=== PATIENT | female | born 1980 | race Caucasian/White ===

== ENCOUNTER 2016-10-30 22:27 | Emergency (ER) | payer OTHER ==
[~2016-10-30 22:27] MED LIST: NORCO1 TA1 PO; PERCOCET1 TA1 PO; ZOFRAN8 MG PO
--- NOTE | 2016-10-30 23:50 | ED NURSING NOTES ---
Clinical Report - Nurses [facility] [address] [place] [address] 10/30/2016 22:27 [id number] Triage time 22:53 Oct 30 2016. Acuity: LEVEL 4. Chief Complaint: (tenderness). --22:56 Rich Baker R.N. 22:52 10/30/16. BP: 117/75. HR: 110. RR: 18. O2 saturation: 100%. Temp: 99 F. Pain level now 02/05. --22:56 Rich Baker R.N. Weight: 81.6 kg stated. Height/Length: 62 inches Per Patient. BMI: 32.9. --22:56 Rich Baker R.N. Medications None. --22:53 Rich Baker R.N. Allergies None. --22:53 Rich Baker R.N. History Arrived by private vehicle. ( Pt states swelling to L leg for days.). Onset. (3 days). SOCIAL HX: Heavy tobacco smoker. Occasional alcohol use. History of occasional drug use: marijuana. --22:56 Rich Baker R.N. PROBLEMS: Sick Contact. Burn Check. Burn. Hives. Sprain. Squamous cell carcinoma of skin of face. Abdominal Pain. Cancer. Abnormal Test. UTI - Urinary Tract Infection. Gastroenteritis. Vomiting. Abd pain, nausea, diahrea. Contusion. Hidradenitis Suppurativa. LNMP - Last Normal Menstrual Period. Fall. Fractured Metatarsal. Tetanus Status. Cellulitis. MRSA Infection. Immunizations. Anxiety Reaction. Abscess. --22:55 Rich Baker R.N. Interventions ID band on patient. To treatment room. --22:56 Rich Baker R.N. PHYSICAL ASSESSMENT GENERAL / NEURO / PSYCH: Alert. Oriented X 4. Appears anxious. RESPIRATORY: Respirations not labored. Breath sounds within normal limits. CVS: Normal heart rate and rhythm. Capillary refill less than 2 seconds. GI / : Abdomen soft and nontender. Bowel sounds within normal limits. No vaginal bleeding. No vaginal discharge. No genital lesions noted. --22:56 Rich Baker R.N. NURSING PROGRESS NOTES Pulse oximeter placed on patient; cardiac tech- Lead I. Patient gowned. Two patient identifiers checked. Call light placed in reach of patient. Side rails up x 1. --22:57 Rich Baker R.N. 00:03 10/31/2016 Bactrim DS (Sulfamethoxazole-TMP DS) PO 1 tab given. Allergies verified and confirmed 5 rights. --00:08 Rich Baker R.N. DISPOSITION / DISCHARGE Departure time: 00:Oct 31 2016. No learning barriers present. Discharge instructions provided and reviewed with the patient. Reviewed warnings. Reviewed medication(s). Treatments reviewed. Reviewed referrals. Patient verbalized understanding. Written instructions provided in [place]i. The patient was discharged by the physician. She was discharged home and accompanied by family. She left the Emergency Department ambulatory and via private vehicle. Family member driving. --00:09 Rich Baker R.N. 00:08 10/31/16. BP: 122/89. HR: 102. RR: 18. O2 saturation: 100%. Temp: 98.9 F. Pain level now 10/08. --00:09 Rich Baker R.N. Locked/Released at 10/31/2016 2:31 by Demetrius Owens R.N.
--- NOTE | 2016-10-30 23:50 | ED ORDER SUMMARY ---
..... Patient: WILL SINGH OrderSheet [facility] VisitID: [id number] [address] [place] [address] 35y, F Registration Date/Time: 10/30/2016 ORDER SHEET Weight: 81.6 kg (stated) Allergies: None GENERAL ORDERS: MEDICATION ORDERS: Bactrim DS PO (Tablet 800-160 mg) 1 tab (NOW) (23:48 10/30/2016 Buddy RINCON) (0:08 Main R.N.) IV FLUIDS: ORDER SHEET NOTES: [Electronically signed by Demetrius Owens R.N. (02:31 10/31/2016)] [Electronically signed by Belem Frederick MD (18:26 10/31/2016)] [Electronically locked/signed by Demetrius Owens R.N. (02:10/31/2016)]
--- NOTE | 2016-10-30 23:50 | ED NURSING NOTES ---
Clinical Report - Nurses [facility] [address] [place] [address] 10/30/2016 22:27 [id number] TRI[facility] Triage time 22:53 Oct 30 2016. Acuity: LEVEL 4. Chief Complaint: (tenderness). --22:56 Rich Baker R.N. 22:52 10/30/16. BP: 117/75. HR: 110. RR: 18. O2 saturation: 100%. Temp: 99 F. Pain level now 02/05. --22:56 Rich Baker R.N. Weight: 81.6 kg stated. Height/Length: 62 inches Per Patient. BMI: 32.9. --22:56 Rich Baker R.N. Medications None. --22:53 Rich Baker R.N. Allergies None. --22:53 Rich Baker R.N. History Arrived by private vehicle. ( Pt states swelling to L leg for days.). Onset. (3 days). SOCIAL HX: Heavy tobacco smoker. Occasional alcohol use. History of occasional drug use: marijuana. --22:56 Rich Baker R.N. PROBLEMS: Sick Contact. Burn Check. Burn. Hives. Sprain. Squamous cell carcinoma of skin of face. Abdominal Pain. Cancer. Abnormal Test. UTI - Urinary Tract Infection. Gastroenteritis. Vomiting. Abd pain, nausea, diahrea. Contusion. Hidradenitis Suppurativa. LNMP - Last Normal Menstrual Period. Fall. Fractured Metatarsal. Tetanus Status. Cellulitis. MRSA Infection. Immunizations. Anxiety Reaction. Abscess. --22:55 Rich Baker R.N. Interventions ID band on patient. To treatment room. --22:56 Rich Baker R.N. PHYSICAL ASSESSMENT GENERAL / NEURO / PSYCH: Alert. Oriented X 4. Appears anxious. RESPIRATORY: Respirations not labored. Breath sounds within normal limits. CVS: Normal heart rate and rhythm. Capillary refill less than 2 seconds. GI / : Abdomen soft and nontender. Bowel sounds within normal limits. No vaginal bleeding. No vaginal discharge. No genital lesions noted. --22:56 Rich Baker R.N. NURSING PROGRESS NOTES Pulse oximeter placed on patient; patient monitor- Lead I. Patient gowned. Two patient identifiers checked. Call light placed in reach of patient. Side rails up x 1. --22:57 Rich Baker R.N. 00:03 10/31/2016 Bactrim DS (Sulfamethoxazole-TMP DS) PO 1 tab given. Allergies verified and confirmed 5 rights. --00:08 Rich Baker R.N. DISPOSITION / DISCHARGE Departure time: 00:Oct 31 2016. No learning barriers present. Discharge instructions provided and reviewed with the patient. Reviewed warnings. Reviewed medication(s). Treatments reviewed. Reviewed referrals. Patient verbalized understanding. Written instructions provided in Dutch. The patient was discharged by the physician. She was discharged home and accompanied by family. She left the Emergency Department ambulatory and via private vehicle. Family member driving. --00:09 Rich Baker R.N. 00:08 10/31/16. BP: 122/89. HR: 102. RR: 18. O2 saturation: 100%. Temp: 98.9 F. Pain level now 10/08. --00:09 Rich Baker R.N. Locked/Released at 10/31/2016 2:31 by Demetrius Owens R.N.
--- NOTE | 2016-10-30 23:50 | ED ORDER SUMMARY ---
..... Patient: WILL SINGH OrderSheet [facility] VisitID: [id number] [address] [place] [address] 35y, F Registration Date/Time: 10/30/2016 ORDER SHEET Weight: 81.6 kg (stated) Allergies: None GENERAL ORDERS: MEDICATION ORDERS: Bactrim DS PO (Tablet 800-160 mg) 1 tab (NOW) (23:48 10/30/2016 Buddy RINCON) (0:08 Main R.N.) IV FLUIDS: ORDER SHEET NOTES: [Electronically signed by Demetrius Owens R.N. (02:31 10/31/2016)] [Electronically signed by Belem Frederick MD (18:26 10/31/2016)] [Electronically locked/signed by Demetrius Owens R.N. (02:10/31/2016)]
--- NOTE | 2016-10-30 23:50 | ED CLINICAL REPORT ---
Clinical Report - Physicians/Mid Levels [facility] [address] [place] [address] 10/30/2016 22:27 Patient: WILL SINGH Time Seen: 23:29. Arrived- By private vehicle. Historian- patient. HISTORY OF PRESENT ILLNESS Chief Complaint: LOWER EXTREMITY PAIN and SWELLING. Not worsened by anything and relieved by anything. Severity is described as being moderate. The quality is noted to be "pain". This started several days ago and is still present and now worse. Location: L inguinal area. The patient has had redness and swelling. No difficulty walking. No bladder dysfunction, bowel dysfunction, sensory loss or motor loss. ( Pt states she noticed a red "bump" under her panty line, and now it is bigger.). Patient denies an injury. Similar symptoms previously: None. Recent medical care: Not recently seen/assessed. REVIEW OF SYSTEMS No cough, chest pain, difficulty breathing, fever or enlarged lymph nodes. No neck pain, back pain, headache, blurred vision or sore throat. No abdominal pain, vomiting, diarrhea, black stools or difficulty with urination. No bloody stools. The patient has had skin rash. All systems otherwise negative, except as recorded above. PAST HISTORY Problems: Hives. Squamous cell carcinoma of skin of face. Cancer. Hidradenitis Suppurativa. LNMP - Last Normal Menstrual Period. Fractured Metatarsal. Tetanus Status. MRSA Infection. Immunizations. Anxiety Reaction. Additional Surgeries: . Hysterectomy. Knee Surgery. Laparoscopy. Left foot surgery . Salpingectomy. Tubal Ligation. Medications: None. Allergies: None. SOCIAL HISTORY Smoker- current status unknown. Alcohol use. History of drug use: marijuana. ADDITIONAL NOTES The nursing notes have been reviewed. PHYSICAL EXAM Vital Signs: 10/30/2016 22:52 BP: 117/75. HR: 110. RR: 18. O2 saturation: 100%. Temp: 99 F. Have been reviewed. Appearance: Alert. Oriented X3. No acute distress. Eyes: Pupils equal, round and reactive to light. Eyes normal inspection. ENT: Nose normal. Neck: Normal inspection. CVS: Normal heart rate and rhythm. Heart sounds normal. Respiratory: No respiratory distress. Breath sounds normal. Abdomen: Soft. Back: Normal inspection. ROM normal. Skin: Skin intact. Skin warm and dry. (Pt has a 3 cm, soft area of erythema and mild swelling over her mid-left inguinal area. No mass is noted, and minimal induration. No drainage.). Extremities: Lower extremities exhibit normal ROM. No lower extremity edema. Extremities otherwise negative. Gait: Normal gait. Neuro: Oriented X 3. No motor deficit. No sensory deficit. LABS, X-RAYS, AND EKG Pulse Oximetry: 10/30/2016 22:52 O2 saturation: 100%. (FIO2 - room air). Interpretation: normal. PROGRESS AND PROCEDURES Course of Care: D/w pt that there is no indication for I&D at this time. She will be started on abx, and has been given the first dose in the ED. Patient counseled in person regarding the patient's stable condition, diagnosis and need for follow-up. Concerns were addressed. Old medical records reviewed. Disposition: Discharged. Condition: stable. CLINICAL IMPRESSION Cellulitis of the left thigh. INSTRUCTIONS Warnings: GENERAL WARNINGS: Return or contact your physician immediately if your condition worsens or changes unexpectedly, if not improving as expected, or if other problems arise. Prescription Medications: Trimethoprim-Sulfamethoxazole DS: take 1 tablet orally every 12 hours for 7 days. No refill. Follow-up: Follow up with your doctor if not improving in three days. Understanding of the discharge instructions verbalized by patient. (Electronically signed by Belem Frederick MD 10/31/2016 18:26)
--- NOTE | 2016-10-31 18:26 | ED MAR SUMMARY ---
..... Medication Administration Record [facility] [address] [place] [address] Patient: WILL SINGH Visit ID: [id number] 35y, F Weight: 81.6 kg Height/Length: 62 in BMI: 32.9 ALLERGIES: None Given 00:03 10/31/2016 Rich Baker R.N. Medication Administered: BACTRIM DS [PO] (SULFAMETHOXAZOLE-TMP DS), Dose: 1 tab PO. Medication Ordered: Bactrim DS PO (Tablet 800-160 mg) 1 tab (NOW).
--- NOTE | 2016-10-31 18:26 | ED MAR SUMMARY ---
..... Medication Administration Record [facility] [address] [place] [address] Patient: WILL SINGH Visit ID: [id number] 35y, F Weight: 81.6 kg Height/Length: 62 in BMI: 32.9 ALLERGIES: None Given 00:03 10/31/2016 Rich Baker R.N. Medication Administered: BACTRIM DS [PO] (SULFAMETHOXAZOLE-TMP DS), Dose: 1 tab PO. Medication Ordered: Bactrim DS PO (Tablet 800-160 mg) 1 tab (NOW).
--- NOTE | 2016-10-31 18:26 | ED MED RECONCILIATION SUMMARY ---
Patient: WILL SINGH Medication Reconciliation Report [facility] VisitID: [id number] [address] [place] [address] 35y, F Registration Date/Time: 10/30/2016 Weight: 81.6 kg Height/Length: 62 in. BMI: 32.9 ALLERGIES: None The patient's Home Medications are listed below: NONE. The source(s) of the original Home Medication information: Not obtained. The following Medications were given to the patient in the Emergency Department: Bactrim DS [PO] PO 1 tab, administered: 10/31/2016 12:03:00 AM The following Medications were prescribed to the patient: Trimethoprim-Sulfamethoxazole DS: take 1 tablet orally every 12 hours for 7 days. No refill. -- Belem Frederick MD
--- NOTE | 2016-10-31 18:26 | ED DISCHARGE INSTRUCTIONS ---
Patient: WILL SINGH General Instructions [facility] VisitID: [id number] [place] [address] 35y, F Registration Date/Time: 10/30/2016 Cellulitis of the left thigh. INSTRUCTIONS Warnings: GENERAL WARNINGS: Return or contact your physician immediately if your condition worsens or changes unexpectedly, if not improving as expected, or if other problems arise. Prescription Medications: Trimethoprim-Sulfamethoxazole DS: take 1 tablet orally every 12 hours for 7 days. No refill. Follow-up: Follow up with your doctor if not improving in three days. Understanding of the discharge instructions verbalized by patient. ADDITIONAL INFORMATION Cellulitis You have an infection of the skin known as cellulitis. This usually starts with a scrape, cut, insect bite, blister or other opening in the skin which becomes infected. This is a serious condition. It must be watched closely to be sure the infection is not spreading. With antibiotic treatment, the size of the red area will gradually shrink in size until the skin returns to normal. This will take 7-10 days. The red area should never increase in size once the antibiotic medicine has been started. Occasionally, an infection will be resistant to one antibiotic and another one will have to be used. Home Care: 1) Limit the use of the affected part, since excess movement can cause the infection to spread. 2) If the infection is on your leg, walk as little as possible during the first few days of the treatment. Keep your leg elevated while sitting. This will reduce swelling. 3) Take all of the antibiotic medicine exactly as directed until it is gone. Be careful not to miss any doses, especially during the first seven days. Follow Up with your doctor or this facility as directed. Check the infected area daily for the warning signs listed below. Get Prompt Medical Attention if any of the following occur: -- Spreading area of redness -- Increasing swelling or pain -- Appearance of pus or drainage -- Fever over 100.4 F (38.0 C) oral, or over 101.4 F (38.6 C) rectal, after two days on antibiotics You have been given the following additional information: Cellulitis (Electronically signed by Belem Frederick MD 10/31/2016 18:26)
--- NOTE | 2016-10-31 18:26 | ED MED RECONCILIATION SUMMARY ---
Patient: WILL SINGH Medication Reconciliation Report [facility] VisitID: [id number] [address] [place] [address] 35y, F Registration Date/Time: 10/30/2016 Weight: 81.6 kg Height/Length: 62 in. BMI: 32.9 ALLERGIES: None The patient's Home Medications are listed below: NONE. The source(s) of the original Home Medication information: Not obtained. The following Medications were given to the patient in the Emergency Department: Bactrim DS [PO] PO 1 tab, administered: 10/31/2016 12:03:00 AM The following Medications were prescribed to the patient: Trimethoprim-Sulfamethoxazole DS: take 1 tablet orally every 12 hours for 7 days. No refill. -- Belem Frederick MD
--- NOTE | 2016-10-31 18:26 | ED DISCHARGE INSTRUCTIONS ---
Patient: WILL SINGH General Instructions [facility] VisitID: [id number] [place] [address] 35y, F Registration Date/Time: 10/30/2016 Cellulitis of the left thigh. INSTRUCTIONS Warnings: GENERAL WARNINGS: Return or contact your physician immediately if your condition worsens or changes unexpectedly, if not improving as expected, or if other problems arise. Prescription Medications: Trimethoprim-Sulfamethoxazole DS: take 1 tablet orally every 12 hours for 7 days. No refill. Follow-up: Follow up with your doctor if not improving in three days. Understanding of the discharge instructions verbalized by patient. ADDITIONAL INFORMATION Cellulitis You have an infection of the skin known as cellulitis. This usually starts with a scrape, cut, insect bite, blister or other opening in the skin which becomes infected. This is a serious condition. It must be watched closely to be sure the infection is not spreading. With antibiotic treatment, the size of the red area will gradually shrink in size until the skin returns to normal. This will take 7-10 days. The red area should never increase in size once the antibiotic medicine has been started. Occasionally, an infection will be resistant to one antibiotic and another one will have to be used. Home Care: 1) Limit the use of the affected part, since excess movement can cause the infection to spread. 2) If the infection is on your leg, walk as little as possible during the first few days of the treatment. Keep your leg elevated while sitting. This will reduce swelling. 3) Take all of the antibiotic medicine exactly as directed until it is gone. Be careful not to miss any doses, especially during the first seven days. Follow Up with your doctor or this facility as directed. Check the infected area daily for the warning signs listed below. Get Prompt Medical Attention if any of the following occur: -- Spreading area of redness -- Increasing swelling or pain -- Appearance of pus or drainage -- Fever over 100.4 F (38.0 C) oral, or over 101.4 F (38.6 C) rectal, after two days on antibiotics You have been given the following additional information: Cellulitis (Electronically signed by Belem Frederick MD 10/31/2016 18:26)
== END 2016-10-31 00:06 | disposition home or self-care (01) ==
LOC: ED SRH 22:27
DX: L03.116 Cellulitis of left lower limb (principal)

== ENCOUNTER 2016-12-01 15:47 | Emergency (ER) | payer OTHER ==
--- NOTE | 2016-12-01 16:33 | ED CLINICAL REPORT ---
Clinical Report - Physicians/Mid Levels [facility] [address] [place] [address] 12/01/2016 15:47 Patient: WILL SINGH Time Seen: 15:55; upon arrival, initial patient contact, initial documentation, patient care assumed. Arrived- By private vehicle. Historian- patient. HISTORY OF PRESENT ILLNESS Chief Complaint: SKIN RASH and ITCHING. The patient has had a skin rash and itching but not had trouble swallowing. No difficulty breathing or dizziness. This started just prior to arrival about 3 hours SHEEP SHEARER and is still present and worsening. No cause has been identified. No treatment prior to arrival. (states rash came on suddenly, started on face, then on arms and now on trunk). Similar symptoms previously: Once, worse. Recent medical care: Not recently seen/assessed. REVIEW OF SYSTEMS No chest pain. All systems otherwise negative, except as recorded above. PAST HISTORY See nurses notes. PROBLEMS: Squamous cell carcinoma of skin of face. Cancer. UTI - Urinary Tract Infection. Gastroenteritis. Abd pain, nausea, diahrea. Hidradenitis Suppurativa. Fractured Metatarsal. Cellulitis. MRSA Infection. --15:58 Damari Zuluaga R.N. ADDITIONAL SURGERIES: . Hysterectomy. Knee Surgery. Laparoscopy. Left foot surgery . Salpingectomy. Tubal Ligation. --15:58 Damari Zuluaga R.N. SOCIAL HISTORY Light tobacco smoker. Occasional alcohol use. No drug use. No recent travel. Is a local resident. FAMILY HISTORY Negative. ADDITIONAL NOTES The nursing notes have been reviewed with agreement regarding the chief complaint, HPI, ROS, PMH and patient medications and allergies. PHYSICAL EXAM Vital Signs: 12/01/2016 15:50 BP: 123/82. HR: 102. RR: 22. O2 saturation: 98%. Temp: 98.6 F. Pain level now: 5/10. Have been reviewed as abnormal and appear to be correct. Blood pressure normal. Tachycardic. Respiratory rate normal. Temperature normal. Oxygen saturation normal. Appearance: Alert. Oriented X3. No acute distress. Head and Neck: Normal external inspection. Eyes: Pupils equal, round and reactive to light. ENT: Ears normal. Nose normal. Pharynx normal. Voice normal. Neck: Neck supple. CVS: Normal heart rate and rhythm. Heart sounds normal. Respiratory: No respiratory distress. Breath sounds normal. Skin: Skin warm and dry. Normal skin turgor. Extremities: Normal external inspection. Extremities nontender. Skin: Moderate urticaria involving the face and chest, right upper extremity and left upper extremity. Normal skin color. Neuro: Oriented X 3. No motor deficit. No sensory deficit. PROGRESS AND PROCEDURES Course of Care: 16:30 12/01/16. nurse reporting she gave benadryl po instead of im pt has wandy for #6 er visits, see report for full details. Patient counseled in person regarding the patient's stable condition and diagnosis. Differential Diagnosis: I considered dermatitis, cellulitis, inflammatory etiology, type 1 hypersensitivity, drug eruption, toxic epidermal necrolysis, idiopathic urticaria, erythema multiforme, erythema nodosum, environmental etiology, viral exanthem, measles, rubella, roseola and fifth disease as a possible cause of rash in this patient. This is a partial list of diagnoses considered. Above considerations are based on history and physical exam. Differential diagnosis was discussed with patient. Disposition: Discharged home in good and improved condition (16:33). Condition: good and stable. CLINICAL IMPRESSION Acute hives secondary to allergy. INSTRUCTIONS Warnings: GENERAL WARNINGS: Return or contact your physician immediately if your condition worsens or changes unexpectedly, if not improving as expected, or if other problems arise. Specifically return if problem worsens. Prescription Medications: Blanche 180 mg tablets: take 1 orally daily for 10 days. Dispense ten (10). No refills. Prednisone 20 mg: take 3 orally every day for 10 days. Dispense sufficient quantity. No refills. Pepcid 40 mg RPD: take 1 orally at bedtime for 10 days. Dispense ten (10). No refills. Follow-up: Follow up with your doctor in two days even if well. Call for an appointment. Summary of care provided to patient. Understanding of the discharge instructions verbalized by patient. (Electronically signed by Norah Connell A.R.N.P. 12/01/2016 17:53)
--- NOTE | 2016-12-01 16:33 | ED NURSING NOTES ---
Clinical Report - Nurses [facility] [address] [place] [address] 12/01/2016 15:47 Patient: WILL SINGH TRIAGE Triage time 1550. Acuity: LEVEL 4. Chief Complaint: SKIN RASH and ITCHING and DIFFICULTY BREATHING 15:50. --16:00 Damari Zuluaga R.N. 15:50 12/01/16. BP: 123/82. HR: 102. RR: 22. O2 saturation: 98% on room air. Temp: 98.6 F. Pain level now: 01/05. --16:00 Damari Zuluaga R.N. Weight: 77.1 kg stated. Height/Length: 64 inches Per Patient. BMI: 29.2. --15:56 Damari Zuluaga R.N. Medications Bactrim on last day of 10 day course for bhronchitis . --15:59 Damari Zuluaga R.N. albuterol 2 puffs every 4 tiems a day prn . --16:00 Damari Zuluaga R.N. Benzonatate Oral 100 mg, 3x a day. --16:00 Damari Zuluaga R.N. Allergies None. --15:59 Damari Zuluaga R.N. History Arrived by private vehicle. Historian: patient. Accompanied by (drove self). No primary care physician. Onset. (1300). She has had a skin rash, itching, swelling and difficulty breathing. PAST MEDICAL HX: The patient has had a hysterectomy. SOCIAL HX: Light tobacco smoker (cigarette)- less than 1/2 a pack per day. Occasional alcohol use. No drug use. --16:00 Damari Zuluaga R.N. PROBLEMS: Squamous cell carcinoma of skin of face. Cancer. UTI - Urinary Tract Infection. Gastroenteritis. Abd pain, nausea, diahrea. Hidradenitis Suppurativa. Fractured Metatarsal. Cellulitis. MRSA Infection. --15:58 Damari Zuluaga R.N. ADDITIONAL SURGERIES: . Hysterectomy. Knee Surgery. Laparoscopy. Left foot surgery . Salpingectomy. Tubal Ligation. --15:58 Damari Zuluaga R.N. Interventions ID band on patient. To treatment room. --16:00 Damari Zuluaga R.N. PHYSICAL ASSESSMENT 16:02 12/01/16. Ambulatory to room. Patient gowned. GENERAL / NEURO / PSYCH: Alert. The patient does not appear to be in acute distress. Appears anxious. Oriented X 4. ( c/o skin itching and burning). HEENT: Facial swelling present. RESPIRATORY: Mild respiratory distress. Cough. ( states she feels like her throat is tight,). CVS: Capillary refill less than 2 seconds. GI / : Abdomen nontender. SKIN: Skin rash present. Urticaria present. Swelling present. Increased warmth present. --16:02 Damari Zuluaga R.N. NURSING PROGRESS NOTES 15:50. Monitoring of patient in place. Patient gowned. Head of bed elevated. Reassurance given. Patient identifiers checked. Call light placed in reach. Side rails up. Bed placed in lowest position. Patient ready for evaluation- chart flagged. --16:01 Damari Zuluaga R.N. 16:24 12/01/2016 Decadron (Dexamethasone Sodium Phosphate) IM 8 mg given. Given in the left ventral gluteus. Allergies verified and confirmed 5 rights. --16:30 Damari Zuluaga R.N. 16:25 12/01/2016 Pepcid (Famotidine) PO Capsules 40 mg given. Allergies verified and confirmed 5 rights. --16:30 Damari Zuluaga R.N. 16:25 12/01/2016 Benadryl (DiphenhydrAMINE HCl) PO Capsules 50 mg given. Sedative warning given to the patient. --16:31 Damari Zuluaga R.N. 16:38 Skin less red, pt states not as itchy or burning. DC'd home with rx. --17:02 Damari Zuluaga R.N. DISPOSITION / DISCHARGE 16:48. Condition at departure: improved and stable. No learning barriers present. Discharge instructions provided and reviewed with the patient. Reviewed medication(s) (allegran, rednisone, pepcid). Patient verbalized understanding. Written instructions provided in Finnish. The patient was discharged home. She left the Emergency Department ambulatory and via private vehicle. --17:01 Damari Zuluaga R.N. 16:48 12/01/16. BP: 112/74. HR: 88. RR: 20. O2 saturation: 100%. Temp: deferred. Pain level now: 11/05. --17:01 Damari Zuluaga R.N. Locked/Released at 12/01/2016 17:02 by Damari Zuluaga R.N.
--- NOTE | 2016-12-01 16:33 | ED ORDER SUMMARY ---
..... Patient: WILL SINGH OrderSheet [facility] VisitID: [id number] [place] [address] 35y, F Registration Date/Time: 12/01/2016 ORDER SHEET Weight: 77.1 kg (stated) Allergies: None GENERAL ORDERS: MEDICATION ORDERS: Benadryl IM 50 mg (NOW) (16:14 12/01/2016 HBivens A.R.N.P.) (Ack 16:19 DDean R.N.) (Cancelled: Other16:30 DDean R.N.) Pepcid PO 40 mg (NOW) (16:14 12/01/2016 HBivens A.R.N.P.) (Ack 16:19 DDean R.N.) (16:30 DDean R.N.) Decadron IM 8 mg (NOW) (16:15 12/01/2016 HBivens A.R.N.P.) (Ack 16:19 DDean R.N.) (16:30 DDean R.N.) Benadryl PO 50 mg (NOW) (16:31 12/01/2016 DDean R.N. verbal order read back to HBivens A.R.N.P.) (16:31 DDean R.N.) IV FLUIDS: ORDER SHEET NOTES: [Electronically signed by Damari Zuluaga R.N. (17:02 12/01/2016)] [Electronically signed by Norah Connell.R.N.P. (17:53 12/01/2016)] [Electronically locked/signed by Damari Zuluaga R.N. (17:02 12/01/2016)]
--- NOTE | 2016-12-01 16:33 | ED ORDER SUMMARY ---
..... Patient: WILL SINGH OrderSheet [facility] VisitID: [id number] [place] [address] 35y, F Registration Date/Time: 12/01/2016 ORDER SHEET Weight: 77.1 kg (stated) Allergies: None GENERAL ORDERS: MEDICATION ORDERS: Benadryl IM 50 mg (NOW) (16:14 12/01/2016 HBivens A.R.N.P.) (Ack 16:19 DDean R.N.) (Cancelled: Other16:30 DDean R.N.) Pepcid PO 40 mg (NOW) (16:14 12/01/2016 HBivens A.R.N.P.) (Ack 16:19 DDean R.N.) (16:30 DDean R.N.) Decadron IM 8 mg (NOW) (16:15 12/01/2016 HBivens A.R.N.P.) (Ack 16:19 DDean R.N.) (16:30 DDean R.N.) Benadryl PO 50 mg (NOW) (16:31 12/01/2016 DDean R.N. verbal order read back to HBivens A.R.N.P.) (16:31 DDean R.N.) IV FLUIDS: ORDER SHEET NOTES: [Electronically signed by Damari Zuluaga R.N. (17:02 12/01/2016)] [Electronically signed by Norah Connell.R.N.P. (17:53 12/01/2016)] [Electronically locked/signed by Damari Zuluaga R.N. (17:02 12/01/2016)]
--- NOTE | 2016-12-01 17:53 | ED MED RECONCILIATION SUMMARY ---
Patient: WILL SINGH Medication Reconciliation Report [facility] VisitID: [id number] [place] [address] 35y, F Registration Date/Time: 12/01/2016 Weight: 77.1 kg Height/Length: 64 in. BMI: 29.2 ALLERGIES: None The patient's Home Medications are listed below: THE FOLLOWING MEDICATIONS NEED TO BE RECONCILED: albuterol 2 puffs every 4 tiems a day prn Bactrim on last day of 10 day course for bhronchitis Benzonatate Oral 100 mg, 3x a day The source(s) of the original Home Medication information: Not obtained. The following Medications were given to the patient in the Emergency Department: Pepcid [PO] PO 40 mg, administered: 12/01/2016 4:25:00 PM Decadron [IM] IM 8 mg, administered: 12/01/2016 4:24:00 PM Benadryl [PO] PO 50 mg, administered: 12/01/2016 4:25:00 PM The following Medications were prescribed to the patient: Blanche 180 mg tablets: take 1 orally daily for 10 days. Dispense ten (10). No refills. -- Norah Connell A.RAleN.P. Prednisone 20 mg: take 3 orally every day for 10 days. Dispense sufficient quantity. No refills. -- Norah Connell A.R.N.P. Pepcid 40 mg RPD: take 1 orally at bedtime for 10 days. Dispense ten (10). No refills. -- Norah Connell A.R.N.P.
--- NOTE | 2016-12-01 17:53 | ED MAR SUMMARY ---
..... Medication Administration Record [facility] [address] [place] [address] Patient: WILL SINGH Visit ID: [id number] 35y, F Weight: 77.1 kg Height/Length: 64 in BMI: 29.2 ALLERGIES: None Given 16:12/01/2016 Damari Zuluaga RAleN. Medication Administered: DECADRON [IM] (DEXAMETHASONE SODIUM PHOSPHATE), Dose: 8 mg IM. Medication Ordered: Decadron IM 8 mg (NOW). Given 16:12/01/2016 Damari Zuluaga, R.N. Medication Administered: BENADRYL [PO] (DIPHENHYDRAMINE HCL), Dose: 50 mg Capsules PO. Medication Ordered: Benadryl PO 50 mg (NOW). Given 16:12/01/2016 Damari Zuluaga, R.N. Medication Administered: PEPCID [PO] (FAMOTIDINE), Dose: 40 mg Capsules PO. Medication Ordered: Pepcid PO 40 mg (NOW).
--- NOTE | 2016-12-01 17:53 | ED DISCHARGE INSTRUCTIONS ---
Patient: WILL SINGH General Instructions [facility] VisitID: [id number] [place] [address] 35y, F Registration Date/Time: 12/01/2016 Acute hives secondary to allergy. INSTRUCTIONS Warnings: GENERAL WARNINGS: Return or contact your physician immediately if your condition worsens or changes unexpectedly, if not improving as expected, or if other problems arise. Specifically return if problem worsens. Prescription Medications: Blanche 180 mg tablets: take 1 orally daily for 10 days. Dispense ten (10). No refills. Prednisone 20 mg: take 3 orally every day for 10 days. Dispense sufficient quantity. No refills. Pepcid 40 mg RPD: take 1 orally at bedtime for 10 days. Dispense ten (10). No refills. Follow-up: Follow up with your doctor in two days even if well. Call for an appointment. Summary of care provided to patient. Understanding of the discharge instructions verbalized by patient. ADDITIONAL INFORMATION Hives Hives is an itchy red rash that can appear suddenly and move about your body. It goes away in one place and comes back in another. This is usually caused by something that you are allergic to such as: EATING: fruit, shellfish, chocolate, nuts, tomatoes or medicine BREATHING: pollens, animal hair/fur or mold spores Exposure to cold air, sun rays or exercise can sometimes cause an attack. Many times we cannot find a cause. Medicines can be used to reduce itching and swelling. The rash will usually fade over several days, but can sometimes last up to two weeks. Home Care: 1) Do not wear tight clothing and do not take hot baths/showers since heat can make the itching worse. 2) An ice pack (ice cubes in a plastic bag, wrapped in a towel) will reduce local areas of redness and itching. Lanacaine cream or Solarcaine spray (or other product containing "benzocaine") will reduce itching. 3) Oral Benadryl (diphenhydramine) is an antihistamine available at drug and grocery stores. Unless a prescription antihistamine was given, Benadryl may be used to reduce itching if large areas of the skin are involved. Use lower doses during the daytime and higher doses at bedtime since the drug may make you sleepy. [NOTE: Do not use Benadryl if you have glaucoma or if you are a man with trouble urinating due to an enlarged prostate.] Claritin (loratadine) is an antihistamine that causes less drowsiness and is a good alternative for daytime use. 4) If you know what you are sensitive to, avoid this substance. Future reactions could be worse than this one. Follow Up with your doctor as directed by our staff, if symptoms do not begin to improve in two days. If you have had a severe reaction, or have had several episodes of hives, then ask your doctor about allergy testing to find out what you are allergic to. Get Prompt Medical Attention if any of the following occur: -- Trouble breathing or swallowing -- New or increased swelling in the face, lips, tongue or throat -- Dizziness, weakness or fainting Allergic Reaction,Generalized [Other] You are having an allergic reaction. This may cause an itchy rash, dizziness, fainting, trouble breathing or swallowing, and swelling of the face or other parts of the body. This can be caused by exposure to something in your surroundings that you have become sensitive to. This could be due to medicine or food. This could also be due to something you put on your skin or in your hair or something in the air. Often it is not possible to find out exactly what has caused your reaction. The goal of today's treatment is to relieve symptoms. The rash will usually fade over several days, but can sometimes last up to two weeks. Home Care: 1) If you know what you are allergic to, avoid it because future reactions could be worse than this one. 2) Avoid tight clothing and anything that heats up your skin (hot showers/baths, direct sunlight) since heat will make itching worse. 3) An ice pack will relieve local areas of intense itching and redness. Lanacaine cream or Solarcaine spray (or other product containing "benzocaine", available without a prescription) will reduce the itching. 4) Oral Benadryl (diphenhydramine) is an antihistamine available at drug and grocery stores. Unless a prescription antihistamine was given, Benadryl may be used to reduce itching if large areas of the skin are involved. Use lower doses during the daytime and higher doses at bedtime since the drug may make you sleepy. [NOTE: Do not use Benadryl if you have glaucoma or if you are a man with trouble urinating due to an enlarged prostate.] Claritin (loratidine) is an antihistamine that causes less drowsiness and is a good alternative for daytime use. Follow Up Follow Up with your doctor or this facility in two days if your symptoms do not continue to improve. If you had a severe reaction today, or if you have had several mild-moderate allergic reactions in the past, ask your doctor about allergy testing to find out what you are allergic to. If your reaction included dizziness, fainting or trouble breathing or swallowing, ask your doctor about carrying an Allergy Kit (injectable epinephrine) for home use. Get Prompt Medical Attention if any of the following occur: -- Trouble breathing or swallowing -- New or worse swelling in the face, eyelids, lips, mouth, tongue or throat -- Dizziness, weakness or fainting Fexofenadine Hydrochloride Oral tablet What is this medicine? FEXOFENADINE (fex oh FEN a connor) is an antihistamine. This medicine is used to treat or prevent symptoms of allergies. It is also used to help reduce itchy skin rash and hives. How should I use this medicine? Take this medicine by mouth with a full glass of water. Follow the directions on the prescription label. You may take this medicine with food or on an empty stomach. Take your medicine at regular intervals. Do not take it more often than directed. You may need to take this medicine for several days before your symptoms improve. Talk to your sand technologist regarding the use of this medicine in children. While this drug may be prescribed for children as young as 6 years old for selected conditions, precautions do apply. What side effects may I notice from receiving this medicine? Side effects that you should report to your doctor or health vehicle care specialist as soon as possible: allergic reactions like skin rash, itching or hives, swelling of the face, lips, or tongue breathing problems chest pain fast heartbeat infection or fever Side effects that usually do not require medical attention (report to your doctor or health vehicle care specialist if they continue or are bothersome): cough drowsiness dry or irritated nose, mouth, or throat headache menstrual changes pain stomach upset, nausea What may interact with this medicine? antacids erythromycin grapefruit, apple, or orange juice ketoconazole magnesium-containing products What if I miss a dose? If you miss a dose, take it as soon as you can. If it is almost time for your next dose, take only that dose. Do not take double or extra doses. Where should I keep my medicine? Keep out of the reach of children. Store at room temperature between 20 and 25 degrees C (68 and 77degrees F). Protect from moisture. Throw away any unused medicine after the expiration date. What should I tell my health care provider before I take this medicine? They need to know if you have any of these conditions: kidney disease an unusual or allergic reaction to fexofenadine, terfenadine, other medicines, foods, dyes, or preservatives or trying to get breast-feeding What should I watch for while using this medicine? Visit your doctor or health vehicle care specialist for regular checks on your health. Tell your doctor or healthcare professional if your symptoms do not start to get better or if they get worse. Prednisone Oral tablet What is this medicine? PREDNISONE (PRED ni sone) is a corticosteroid. It is commonly used to treat inflammation of the skin, joints, lungs, and other organs. Common conditions treated include asthma, allergies, and arthritis. It is also used for other conditions, such as blood disorders and diseases of the adrenal glands. How should I use this medicine? Take this medicine by mouth with a glass of water. Follow the directions on the prescription label. Take this medicine with food. If you are taking this medicine once a day, take it in the morning. Do not take more medicine than you are told to take. Do not suddenly stop taking your medicine because you may develop a severe reaction. Your doctor will tell you how much medicine to take. If your doctor wants you to stop the medicine, the dose may be slowly lowered over time to avoid any side effects. Talk to your sand technologist regarding the use of this medicine in children. Special care may be needed. What side effects may I notice from receiving this medicine? Side effects that you should report to your doctor or health vehicle care specialist as soon as possible: allergic reactions like skin rash, itching or hives, swelling of the face, lips, or tongue changes in emotions or moods changes in vision depressed mood eye pain fever or chills, cough, sore throat, pain or difficulty passing urine increased thirst swelling of ankles, feet Side effects that usually do not require medical attention (report to your doctor or health vehicle care specialist if they continue or are bothersome): confusion, excitement, restlessness headache nausea, vomiting skin problems, acne, thin and shiny skin trouble sleeping weight gain What may interact with this medicine? Do not take this medicine with any of the following medications: metyrapone mifepristone This medicine may also interact with the following medications: aminoglutethimide amphotericin B aspirin and aspirin-like medicines barbiturates certain medicines for diabetes, like glipizide or glyburide cholestyramine cholinesterase inhibitors cyclosporine digoxin diuretics ephedrine female hormones, like estrogens and control pills isoniazid ketoconazole NSAIDS, medicines for pain and inflammation, like ibuprofen or naproxen phenytoin rifampin toxoids vaccines warfarin What if I miss a dose? If you miss a dose, take it as soon as you can. If it is almost time for your next dose, talk to your doctor or health vehicle care specialist. You may need to miss a dose or take an extra dose. Do not take double or extra doses without advice. Where should I keep my medicine? Keep out of the reach of children. Store at room temperature between 15 and 30 degrees C (59 and 86 degrees F). Protect from light. Keep container tightly closed. Throw away any unused medicine after the expiration date. What should I tell my health care provider before I take this medicine? They need to know if you have any of these conditions: Jackpot's syndrome diabetes glaucoma heart disease high blood pressure infection (especially a virus infection such as chickenpox, cold sores, or herpes) kidney disease liver disease mental illness myasthenia gravis osteoporosis seizures stomach or intestine problems thyroid disease an unusual or allergic reaction to lactose, prednisone, other medicines, foods, dyes, or preservatives or trying to get breast-feeding What should I watch for while using this medicine? Visit your doctor or health vehicle care specialist for regular checks on your progress. If you are taking this medicine over a prolonged period, carry an identification card with your name and address, the type and dose of your medicine, and your doctor's name and address. This medicine may increase your risk of getting an infection. Tell your doctor or health vehicle care specialist if you are around anyone with measles or chickenpox, or if you develop sores or blisters that do not heal properly. If you are going to have surgery, tell your doctor or health vehicle care specialist that you have taken this medicine within the last twelve months. Ask your doctor or health vehicle care specialist about your diet. You may need to lower the amount of salt you eat. This medicine may affect blood sugar levels. If you have diabetes, check with your doctor or health vehicle care specialist before you change your diet or the dose of your diabetic medicine. Famotidine Oral tablet What is this medicine? FAMOTIDINE (sigifredo ryan) is a type of antihistamine that blocks the release of stomach acid. It is used to treat stomach or intestinal ulcers. It can also relieve heartburn from acid reflux. How should I use this medicine? Take this medicine by mouth with a glass of water. Follow the directions on the prescription label. If you only take this medicine once a day, take it at bedtime. Take your doses at regular intervals. Do not take your medicine more often than directed. Talk to your sand technologist regarding the use of this medicine in children. Special care may be needed. What side effects may I notice from receiving this medicine? Side effects that you should report to your doctor or health vehicle care specialist as soon as possible: agitation, nervousness confusion hallucinations skin rash, itching Side effects that usually do not require medical attention (report to your doctor or health vehicle care specialist if they continue or are bothersome): constipation diarrhea dizziness headache What may interact with this medicine? delavirdine itraconazole ketoconazole What if I miss a dose? If you miss a dose, take it as soon as you can. If it is almost time for your next dose, take only that dose. Do not take double or extra doses. Where should I keep my medicine? Keep out of the reach of children. Store at room temperature between 15 and 30 degrees C (59 and 86 degrees F). Do not freeze. Throw away any unused medicine after the expiration date. What should I tell my health care provider before I take this medicine? They need to know if you have any of these conditions: kidney or liver disease trouble swallowing an unusual or allergic reaction to famotidine, other medicines, foods, dyes, or preservatives or trying to get breast-feeding What should I watch for while using this medicine? Tell your doctor or health vehicle care specialist if your condition does not start to get better or if it gets worse. Finish the full course of tablets prescribed, even if you feel better. Do not take with aspirin, ibuprofen or other antiinflammatory medicines. These can make your condition worse. Do not smoke cigarettes or drink alcohol. These cause irritation in your stomach and can increase the time it will take for ulcers to heal. If you get black, tarry stools or vomit up what looks like coffee grounds, call your doctor or health vehicle care specialist at once. You may have a bleeding ulcer. You have been given the following additional information: Hives Allergic Reaction, Other (General) Fexofenadine Hydrochloride Oral tablet Prednisone Oral tablet Famotidine Oral tablet (Electronically signed by Norah Connell A.R.N.P. 12/01/2016 17:53)
--- NOTE | 2016-12-01 17:53 | ED DISCHARGE INSTRUCTIONS ---
Patient: WILL SINGH General Instructions [facility] VisitID: [id number] [place] [address] 35y, F Registration Date/Time: 12/01/2016 Acute hives secondary to allergy. INSTRUCTIONS Warnings: GENERAL WARNINGS: Return or contact your physician immediately if your condition worsens or changes unexpectedly, if not improving as expected, or if other problems arise. Specifically return if problem worsens. Prescription Medications: Blanche 180 mg tablets: take 1 orally daily for 10 days. Dispense ten (10). No refills. Prednisone 20 mg: take 3 orally every day for 10 days. Dispense sufficient quantity. No refills. Pepcid 40 mg RPD: take 1 orally at bedtime for 10 days. Dispense ten (10). No refills. Follow-up: Follow up with your doctor in two days even if well. Call for an appointment. Summary of care provided to patient. Understanding of the discharge instructions verbalized by patient. ADDITIONAL INFORMATION Hives Hives is an itchy red rash that can appear suddenly and move about your body. It goes away in one place and comes back in another. This is usually caused by something that you are allergic to such as: EATING: fruit, shellfish, chocolate, nuts, tomatoes or medicine BREATHING: pollens, animal hair/fur or mold spores Exposure to cold air, sun rays or exercise can sometimes cause an attack. Many times we cannot find a cause. Medicines can be used to reduce itching and swelling. The rash will usually fade over several days, but can sometimes last up to two weeks. Home Care: 1) Do not wear tight clothing and do not take hot baths/showers since heat can make the itching worse. 2) An ice pack (ice cubes in a plastic bag, wrapped in a towel) will reduce local areas of redness and itching. Lanacaine cream or Solarcaine spray (or other product containing "benzocaine") will reduce itching. 3) Oral Benadryl (diphenhydramine) is an antihistamine available at drug and grocery stores. Unless a prescription antihistamine was given, Benadryl may be used to reduce itching if large areas of the skin are involved. Use lower doses during the daytime and higher doses at bedtime since the drug may make you sleepy. [NOTE: Do not use Benadryl if you have glaucoma or if you are a man with trouble urinating due to an enlarged prostate.] Claritin (loratadine) is an antihistamine that causes less drowsiness and is a good alternative for daytime use. 4) If you know what you are sensitive to, avoid this substance. Future reactions could be worse than this one. Follow Up with your doctor as directed by our staff, if symptoms do not begin to improve in two days. If you have had a severe reaction, or have had several episodes of hives, then ask your doctor about allergy testing to find out what you are allergic to. Get Prompt Medical Attention if any of the following occur: -- Trouble breathing or swallowing -- New or increased swelling in the face, lips, tongue or throat -- Dizziness, weakness or fainting Allergic Reaction,Generalized [Other] You are having an allergic reaction. This may cause an itchy rash, dizziness, fainting, trouble breathing or swallowing, and swelling of the face or other parts of the body. This can be caused by exposure to something in your surroundings that you have become sensitive to. This could be due to medicine or food. This could also be due to something you put on your skin or in your hair or something in the air. Often it is not possible to find out exactly what has caused your reaction. The goal of today's treatment is to relieve symptoms. The rash will usually fade over several days, but can sometimes last up to two weeks. Home Care: 1) If you know what you are allergic to, avoid it because future reactions could be worse than this one. 2) Avoid tight clothing and anything that heats up your skin (hot showers/baths, direct sunlight) since heat will make itching worse. 3) An ice pack will relieve local areas of intense itching and redness. Lanacaine cream or Solarcaine spray (or other product containing "benzocaine", available without a prescription) will reduce the itching. 4) Oral Benadryl (diphenhydramine) is an antihistamine available at drug and grocery stores. Unless a prescription antihistamine was given, Benadryl may be used to reduce itching if large areas of the skin are involved. Use lower doses during the daytime and higher doses at bedtime since the drug may make you sleepy. [NOTE: Do not use Benadryl if you have glaucoma or if you are a man with trouble urinating due to an enlarged prostate.] Claritin (loratidine) is an antihistamine that causes less drowsiness and is a good alternative for daytime use. Follow Up Follow Up with your doctor or this facility in two days if your symptoms do not continue to improve. If you had a severe reaction today, or if you have had several mild-moderate allergic reactions in the past, ask your doctor about allergy testing to find out what you are allergic to. If your reaction included dizziness, fainting or trouble breathing or swallowing, ask your doctor about carrying an Allergy Kit (injectable epinephrine) for home use. Get Prompt Medical Attention if any of the following occur: -- Trouble breathing or swallowing -- New or worse swelling in the face, eyelids, lips, mouth, tongue or throat -- Dizziness, weakness or fainting Fexofenadine Hydrochloride Oral tablet What is this medicine? FEXOFENADINE (fex oh FEN a connor) is an antihistamine. This medicine is used to treat or prevent symptoms of allergies. It is also used to help reduce itchy skin rash and hives. How should I use this medicine? Take this medicine by mouth with a full glass of water. Follow the directions on the prescription label. You may take this medicine with food or on an empty stomach. Take your medicine at regular intervals. Do not take it more often than directed. You may need to take this medicine for several days before your symptoms improve. Talk to your felt checker regarding the use of this medicine in children. While this drug may be prescribed for children as young as 6 years old for selected conditions, precautions do apply. What side effects may I notice from receiving this medicine? Side effects that you should report to your doctor or health primary care md as soon as possible: allergic reactions like skin rash, itching or hives, swelling of the face, lips, or tongue breathing problems chest pain fast heartbeat infection or fever Side effects that usually do not require medical attention (report to your doctor or health primary care md if they continue or are bothersome): cough drowsiness dry or irritated nose, mouth, or throat headache menstrual changes pain stomach upset, nausea What may interact with this medicine? antacids erythromycin grapefruit, apple, or orange juice ketoconazole magnesium-containing products What if I miss a dose? If you miss a dose, take it as soon as you can. If it is almost time for your next dose, take only that dose. Do not take double or extra doses. Where should I keep my medicine? Keep out of the reach of children. Store at room temperature between 20 and 25 degrees C (68 and 77degrees F). Protect from moisture. Throw away any unused medicine after the expiration date. What should I tell my health care provider before I take this medicine? They need to know if you have any of these conditions: kidney disease an unusual or allergic reaction to fexofenadine, terfenadine, other medicines, foods, dyes, or preservatives or trying to get breast-feeding What should I watch for while using this medicine? Visit your doctor or health primary care md for regular checks on your health. Tell your doctor or healthcare professional if your symptoms do not start to get better or if they get worse. Prednisone Oral tablet What is this medicine? PREDNISONE (PRED ni sone) is a corticosteroid. It is commonly used to treat inflammation of the skin, joints, lungs, and other organs. Common conditions treated include asthma, allergies, and arthritis. It is also used for other conditions, such as blood disorders and diseases of the adrenal glands. How should I use this medicine? Take this medicine by mouth with a glass of water. Follow the directions on the prescription label. Take this medicine with food. If you are taking this medicine once a day, take it in the morning. Do not take more medicine than you are told to take. Do not suddenly stop taking your medicine because you may develop a severe reaction. Your doctor will tell you how much medicine to take. If your doctor wants you to stop the medicine, the dose may be slowly lowered over time to avoid any side effects. Talk to your felt checker regarding the use of this medicine in children. Special care may be needed. What side effects may I notice from receiving this medicine? Side effects that you should report to your doctor or health primary care md as soon as possible: allergic reactions like skin rash, itching or hives, swelling of the face, lips, or tongue changes in emotions or moods changes in vision depressed mood eye pain fever or chills, cough, sore throat, pain or difficulty passing urine increased thirst swelling of ankles, feet Side effects that usually do not require medical attention (report to your doctor or health primary care md if they continue or are bothersome): confusion, excitement, restlessness headache nausea, vomiting skin problems, acne, thin and shiny skin trouble sleeping weight gain What may interact with this medicine? Do not take this medicine with any of the following medications: metyrapone mifepristone This medicine may also interact with the following medications: aminoglutethimide amphotericin B aspirin and aspirin-like medicines barbiturates certain medicines for diabetes, like glipizide or glyburide cholestyramine cholinesterase inhibitors cyclosporine digoxin diuretics ephedrine female hormones, like estrogens and control pills isoniazid ketoconazole NSAIDS, medicines for pain and inflammation, like ibuprofen or naproxen phenytoin rifampin toxoids vaccines warfarin What if I miss a dose? If you miss a dose, take it as soon as you can. If it is almost time for your next dose, talk to your doctor or health primary care md. You may need to miss a dose or take an extra dose. Do not take double or extra doses without advice. Where should I keep my medicine? Keep out of the reach of children. Store at room temperature between 15 and 30 degrees C (59 and 86 degrees F). Protect from light. Keep container tightly closed. Throw away any unused medicine after the expiration date. What should I tell my health care provider before I take this medicine? They need to know if you have any of these conditions: Toronto's syndrome diabetes glaucoma heart disease high blood pressure infection (especially a virus infection such as chickenpox, cold sores, or herpes) kidney disease liver disease mental illness myasthenia gravis osteoporosis seizures stomach or intestine problems thyroid disease an unusual or allergic reaction to lactose, prednisone, other medicines, foods, dyes, or preservatives or trying to get breast-feeding What should I watch for while using this medicine? Visit your doctor or health primary care md for regular checks on your progress. If you are taking this medicine over a prolonged period, carry an identification card with your name and address, the type and dose of your medicine, and your doctor's name and address. This medicine may increase your risk of getting an infection. Tell your doctor or health primary care md if you are around anyone with measles or chickenpox, or if you develop sores or blisters that do not heal properly. If you are going to have surgery, tell your doctor or health primary care md that you have taken this medicine within the last twelve months. Ask your doctor or health primary care md about your diet. You may need to lower the amount of salt you eat. This medicine may affect blood sugar levels. If you have diabetes, check with your doctor or health primary care md before you change your diet or the dose of your diabetic medicine. Famotidine Oral tablet What is this medicine? FAMOTIDINE (sigifredo ryan) is a type of antihistamine that blocks the release of stomach acid. It is used to treat stomach or intestinal ulcers. It can also relieve heartburn from acid reflux. How should I use this medicine? Take this medicine by mouth with a glass of water. Follow the directions on the prescription label. If you only take this medicine once a day, take it at bedtime. Take your doses at regular intervals. Do not take your medicine more often than directed. Talk to your felt checker regarding the use of this medicine in children. Special care may be needed. What side effects may I notice from receiving this medicine? Side effects that you should report to your doctor or health primary care md as soon as possible: agitation, nervousness confusion hallucinations skin rash, itching Side effects that usually do not require medical attention (report to your doctor or health primary care md if they continue or are bothersome): constipation diarrhea dizziness headache What may interact with this medicine? delavirdine itraconazole ketoconazole What if I miss a dose? If you miss a dose, take it as soon as you can. If it is almost time for your next dose, take only that dose. Do not take double or extra doses. Where should I keep my medicine? Keep out of the reach of children. Store at room temperature between 15 and 30 degrees C (59 and 86 degrees F). Do not freeze. Throw away any unused medicine after the expiration date. What should I tell my health care provider before I take this medicine? They need to know if you have any of these conditions: kidney or liver disease trouble swallowing an unusual or allergic reaction to famotidine, other medicines, foods, dyes, or preservatives or trying to get breast-feeding What should I watch for while using this medicine? Tell your doctor or health primary care md if your condition does not start to get better or if it gets worse. Finish the full course of tablets prescribed, even if you feel better. Do not take with aspirin, ibuprofen or other antiinflammatory medicines. These can make your condition worse. Do not smoke cigarettes or drink alcohol. These cause irritation in your stomach and can increase the time it will take for ulcers to heal. If you get black, tarry stools or vomit up what looks like coffee grounds, call your doctor or health primary care md at once. You may have a bleeding ulcer. You have been given the following additional information: Hives Allergic Reaction, Other (General) Fexofenadine Hydrochloride Oral tablet Prednisone Oral tablet Famotidine Oral tablet (Electronically signed by Norah Connell A.R.N.P. 12/01/2016 17:53)
--- NOTE | 2016-12-01 17:53 | ED MAR SUMMARY ---
..... Medication Administration Record [facility] [address] [place] [address] Patient: WILL SINGH Visit ID: [id number] 35y, F Weight: 77.1 kg Height/Length: 64 in BMI: 29.2 ALLERGIES: None Given 16:12/01/2016 Damari Zuluaga RAleN. Medication Administered: DECADRON [IM] (DEXAMETHASONE SODIUM PHOSPHATE), Dose: 8 mg IM. Medication Ordered: Decadron IM 8 mg (NOW). Given 16:12/01/2016 Damari Zuluaga, R.N. Medication Administered: BENADRYL [PO] (DIPHENHYDRAMINE HCL), Dose: 50 mg Capsules PO. Medication Ordered: Benadryl PO 50 mg (NOW). Given 16:12/01/2016 Damari Zuluaga, R.N. Medication Administered: PEPCID [PO] (FAMOTIDINE), Dose: 40 mg Capsules PO. Medication Ordered: Pepcid PO 40 mg (NOW).
--- NOTE | 2016-12-01 17:53 | ED MED RECONCILIATION SUMMARY ---
Patient: WILL SINGH Medication Reconciliation Report [facility] VisitID: [id number] [place] [address] 35y, F Registration Date/Time: 12/01/2016 Weight: 77.1 kg Height/Length: 64 in. BMI: 29.2 ALLERGIES: None The patient's Home Medications are listed below: THE FOLLOWING MEDICATIONS NEED TO BE RECONCILED: albuterol 2 puffs every 4 tiems a day prn Bactrim on last day of 10 day course for bhronchitis Benzonatate Oral 100 mg, 3x a day The source(s) of the original Home Medication information: Not obtained. The following Medications were given to the patient in the Emergency Department: Pepcid [PO] PO 40 mg, administered: 12/01/2016 4:25:00 PM Decadron [IM] IM 8 mg, administered: 12/01/2016 4:24:00 PM Benadryl [PO] PO 50 mg, administered: 12/01/2016 4:25:00 PM The following Medications were prescribed to the patient: Blanche 180 mg tablets: take 1 orally daily for 10 days. Dispense ten (10). No refills. -- Norah Connell A.RAleN.P. Prednisone 20 mg: take 3 orally every day for 10 days. Dispense sufficient quantity. No refills. -- Norah Connell A.R.N.P. Pepcid 40 mg RPD: take 1 orally at bedtime for 10 days. Dispense ten (10). No refills. -- Norah Connell A.R.N.P.
== END 2016-12-01 16:48 | disposition home or self-care (01) ==
LOC: ED SRH 15:47
DX: L50.0 Allergic urticaria (principal); Z72.0 Tobacco use

== ENCOUNTER 2016-12-19 09:57 | Emergency (ER) | payer OTHER ==
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
--- NOTE | 2016-12-19 11:34 | ED ORDER SUMMARY ---
..... Patient: WILL SINGH OrderSheet [facility] VisitID: [id number] [address] [place] [address] 35y, F Registration Date/Time: 12/19/2016 ORDER SHEET Weight: 68.0 kg Allergies: Sulfa Antibiotics GENERAL ORDERS: Hand 3 or 4V Left Urgent (10:31 12/19/2016 Anabel Foster) (Ack 10:51 TBergley) (11:24 TBergley) MEDICATION ORDERS: Toradol IM 60 mg (NOW) (10:31 12/19/2016 Anabel Foster) (Ack 10:39 SRehernan R.N.) (10:42 Jean Paul R.N.) IV FLUIDS: ORDER SHEET NOTES: This document has not been locked and should not be saved in the medical record.
--- NOTE | 2016-12-19 11:34 | ED ORDER SUMMARY ---
..... Patient: WILL SINGH OrderSheet [facility] VisitID: [id number] [address] [place] [address] 35y, F Registration Date/Time: 12/19/2016 ORDER SHEET Weight: 68.0 kg Allergies: Sulfa Antibiotics GENERAL ORDERS: Hand 3 or 4V Left Urgent (10:31 12/19/2016 Anabel Foster) (Ack 10:51 TBergley) (11:24 TBergley) MEDICATION ORDERS: Toradol IM 60 mg (NOW) (10:31 12/19/2016 Anabel Foster) (Ack 10:39 SRehernan R.N.) (10:42 Jean Paul R.N.) IV FLUIDS: ORDER SHEET NOTES: This document has not been locked and should not be saved in the medical record.
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
--- NOTE | 2016-12-26 10:21 | ED DISCHARGE INSTRUCTIONS ---
Patient: WILL SINGH General Instructions [facility] VisitID: [id number] [place] [address] 35y, F Registration Date/Time: 12/19/2016 Single contusion with soft tissue hematoma to the left hand. INSTRUCTIONS Apply ice for 20 minutes four times a day. Don't apply ice directly to skin. Heron tape fingers until better. Limit use of your left hand until better. Your Current Medications: CONTINUE TAKING THE FOLLOWING MEDICATIONS: None*. Prescription Medications: Hydrocodone/APAP 5mg / 325mg: take 1 orally every 6 hours as needed for pain. Dispense fifteen (15). No refill. Follow-up: Follow up with your doctor in about two days. Call for an appointment. Screening today revealed the patient's blood pressure to be in the pre-hypertensive range. The patient should follow up with a primary care provider for blood pressure management. ADDITIONAL INFORMATION Contusion,Soft Tissue You have a CONTUSION, which is a bruise with swelling and some bleeding under the skin. There are no broken bones. This injury takes a few days to a few weeks to heal. Home Care: 1) Keep the injured part elevated to reduce pain and swelling. This is especially important during the first 48 hours. 2) Make an ice pack (ice cubes in a plastic bag, wrapped in a towel) and apply for 20 minutes every 1-2 hours the first day. Continue this 3-4 times a day until the pain and swelling goes away. 3) You may use acetaminophen (Tylenol) or ibuprofen (Motrin, Advil) to control pain, unless another pain medicine was prescribed. [ NOTE : If you have chronic liver or kidney disease or ever had a stomach ulcer or GI bleeding, talk with your doctor before using these medicines.] Follow Up with your doctor or this facility if you are not improving within the next THREE days. [NOTE: If X-rays were taken, they will be reviewed by a radiologist. You will be notified of any new findings that may affect your care.] Get Prompt Medical Attention if any of the following occur: -- Pain or swelling increases -- Injured arm or leg becomes cold, blue, numb or tingly -- Redness, warmth or drainage from the skin Hydrocodone Bitartrate, Acetaminophen Oral tablet What is this medicine? ACETAMINOPHEN; HYDROCODONE (a set a MAURA calvin fen; shmuel droe KOE done) is a pain reliever. It is used to treat mild to moderate pain. How should I use this medicine? Take this medicine by mouth. Swallow it with a full glass of water. Follow the directions on the prescription label. If the medicine upsets your stomach, take the medicine with food or milk. Do not take more than you are told to take. Talk to your certified professional ergonomist regarding the use of this medicine in children. This medicine is not approved for use in children. What side effects may I notice from receiving this medicine? Side effects that you should report to your doctor or health attending ambulatory care as soon as possible: allergic reactions like skin rash, itching or hives, swelling of the face, lips, or tongue breathing problems confusion feeling faint or lightheaded, falls stomach pain yellowing of the eyes or skin Side effects that usually do not require medical attention (report to your doctor or health attending ambulatory care if they continue or are bothersome): nausea, vomiting stomach upset What may interact with this medicine? alcohol antihistamines isoniazid medicines for depression, anxiety, or psychotic disturbances medicines for sleep muscle relaxants naltrexone narcotic medicines (opiates) for pain phenobarbital ritonavir tramadol What if I miss a dose? If you miss a dose, take it as soon as you can. If it is almost time for your next dose, take only that dose. Do not take double or extra doses. Where should I keep my medicine? Keep out of the reach of children. This medicine can be abused. Keep your medicine in a safe place to protect it from theft. Do not share this medicine with anyone. Selling or giving away this medicine is dangerous and against the law. Store at room temperature between 15 and 30 degrees C (59 and 86 degrees F). Protect from light. Keep container tightly closed. Throw away any unused medicine after the expiration date. Discard unused medicine and used packaging carefully. Pets and children can be harmed if they find used or lost packages. What should I tell my health care provider before I take this medicine? They need to know if you have any of these conditions: brain tumor Crohn's disease, inflammatory bowel disease, or ulcerative colitis drink more than 3 alcohol-containing drinks per day drug abuse or addiction head injury heart or circulation problems kidney disease or problems going to the bathroom liver disease lung disease, asthma, or breathing problems an unusual or allergic reaction to acetaminophen, hydrocodone, other opioid analgesics, other medicines, foods, dyes, or preservatives or trying to get breast-feeding What should I watch for while using this medicine? Tell your doctor or health attending ambulatory care if your pain does not go away, if it gets worse, or if you have new or a different type of pain. You may develop tolerance to the medicine. Tolerance means that you will need a higher dose of the medicine for pain relief. Tolerance is normal and is expected if you take the medicine for a long time. Do not suddenly stop taking your medicine because you may develop a severe reaction. Your body becomes used to the medicine. This does NOT mean you are addicted. Addiction is a behavior related to getting and using a drug for a non-medical reason. If you have pain, you have a medical reason to take pain medicine. Your doctor will tell you how much medicine to take. If your doctor wants you to stop the medicine, the dose will be slowly lowered over time to avoid any side effects. You may get drowsy or dizzy when you first start taking the medicine or change doses. Do not drive, use machinery, or do anything that may be dangerous until you know how the medicine affects you. Stand or sit up slowly. There are different types of narcotic medicines (opiates) for pain. If you take more than one type at the same time, you may have more side effects. Give your health care provider a list of all medicines you use. Your doctor will tell you how much medicine to take. Do not take more medicine than directed. Call emergency for help if you have problems breathing. The medicine will cause constipation. Try to have a bowel movement at least every 2 to 3 days. If you do not have a bowel movement for 3 days, call your doctor or health attending ambulatory care. Too much acetaminophen can be very dangerous. Do not take Tylenol (acetaminophen) or medicines that contain acetaminophen with this medicine. Many non-prescription medicines contain acetaminophen. Always read the labels carefully. You have been given the following additional information: Contusion, Soft Tissue Hydrocodone Bitartrate, Acetaminophen Oral tablet Limit use of your left hand until better. (Electronically signed by Gerardo Loya Dr. 12/19/2016 11:36)
--- NOTE | 2016-12-26 10:21 | ED MED RECONCILIATION SUMMARY ---
Patient: WILL SINGH Medication Reconciliation Report [facility] VisitID: [id number] [place] [address] 35y, F Registration Date/Time: 12/19/2016 Weight: 68.0 kg Height/Length: 63 in. BMI: 26.6 ALLERGIES: Sulfa Antibiotics The patient's Home Medications are listed below: NONE. The source(s) of the original Home Medication information: Not obtained. The following Medications were given to the patient in the Emergency Department: Toradol [IM] IM 60 mg, administered: 12/19/2016 10:42:00 AM The following Medications were prescribed to the patient: Hydrocodone/APAP 5mg / 325mg: take 1 orally every 6 hours as needed for pain. Dispense fifteen (15). No refill. -- Gerardo Loya Dr.
--- NOTE | 2016-12-26 10:21 | ED MAR SUMMARY ---
..... Medication Administration Record [facility] [address] [place] [address] Patient: WILL SINGH Visit ID: [id number] 35y, F Weight: 68.0 kg Height/Length: 63 in BMI: 26.6 ALLERGIES: Sulfa Antibiotics Given 10:42 12/19/2016 Ursula Bean RYady Medication Administered: TORADOL [IM] (KETOROLAC TROMETHAMINE), Dose: 60 mg IM. Medication Ordered: Toradol IM 60 mg (NOW).
--- NOTE | 2016-12-26 10:21 | ED MED RECONCILIATION SUMMARY ---
Patient: WILL SINGH Medication Reconciliation Report [facility] VisitID: [id number] [place] [address] 35y, F Registration Date/Time: 12/19/2016 Weight: 68.0 kg Height/Length: 63 in. BMI: 26.6 ALLERGIES: Sulfa Antibiotics The patient's Home Medications are listed below: NONE. The source(s) of the original Home Medication information: Not obtained. The following Medications were given to the patient in the Emergency Department: Toradol [IM] IM 60 mg, administered: 12/19/2016 10:42:00 AM The following Medications were prescribed to the patient: Hydrocodone/APAP 5mg / 325mg: take 1 orally every 6 hours as needed for pain. Dispense fifteen (15). No refill. -- Gerardo Loya Dr.
--- NOTE | 2016-12-26 10:21 | ED DISCHARGE INSTRUCTIONS ---
Patient: WILL SINGH General Instructions [facility] VisitID: [id number] [place] [address] 35y, F Registration Date/Time: 12/19/2016 Single contusion with soft tissue hematoma to the left hand. INSTRUCTIONS Apply ice for 20 minutes four times a day. Don't apply ice directly to skin. Heron tape fingers until better. Limit use of your left hand until better. Your Current Medications: CONTINUE TAKING THE FOLLOWING MEDICATIONS: None*. Prescription Medications: Hydrocodone/APAP 5mg / 325mg: take 1 orally every 6 hours as needed for pain. Dispense fifteen (15). No refill. Follow-up: Follow up with your doctor in about two days. Call for an appointment. Screening today revealed the patient's blood pressure to be in the pre-hypertensive range. The patient should follow up with a primary care provider for blood pressure management. ADDITIONAL INFORMATION Contusion,Soft Tissue You have a CONTUSION, which is a bruise with swelling and some bleeding under the skin. There are no broken bones. This injury takes a few days to a few weeks to heal. Home Care: 1) Keep the injured part elevated to reduce pain and swelling. This is especially important during the first 48 hours. 2) Make an ice pack (ice cubes in a plastic bag, wrapped in a towel) and apply for 20 minutes every 1-2 hours the first day. Continue this 3-4 times a day until the pain and swelling goes away. 3) You may use acetaminophen (Tylenol) or ibuprofen (Motrin, Advil) to control pain, unless another pain medicine was prescribed. [ NOTE : If you have chronic liver or kidney disease or ever had a stomach ulcer or GI bleeding, talk with your doctor before using these medicines.] Follow Up with your doctor or this facility if you are not improving within the next THREE days. [NOTE: If X-rays were taken, they will be reviewed by a radiologist. You will be notified of any new findings that may affect your care.] Get Prompt Medical Attention if any of the following occur: -- Pain or swelling increases -- Injured arm or leg becomes cold, blue, numb or tingly -- Redness, warmth or drainage from the skin Hydrocodone Bitartrate, Acetaminophen Oral tablet What is this medicine? ACETAMINOPHEN; HYDROCODONE (a set a MAURA calvin fen; shmuel droe KOE done) is a pain reliever. It is used to treat mild to moderate pain. How should I use this medicine? Take this medicine by mouth. Swallow it with a full glass of water. Follow the directions on the prescription label. If the medicine upsets your stomach, take the medicine with food or milk. Do not take more than you are told to take. Talk to your equipment service engineer regarding the use of this medicine in children. This medicine is not approved for use in children. What side effects may I notice from receiving this medicine? Side effects that you should report to your doctor or health home care nurse as soon as possible: allergic reactions like skin rash, itching or hives, swelling of the face, lips, or tongue breathing problems confusion feeling faint or lightheaded, falls stomach pain yellowing of the eyes or skin Side effects that usually do not require medical attention (report to your doctor or health home care nurse if they continue or are bothersome): nausea, vomiting stomach upset What may interact with this medicine? alcohol antihistamines isoniazid medicines for depression, anxiety, or psychotic disturbances medicines for sleep muscle relaxants naltrexone narcotic medicines (opiates) for pain phenobarbital ritonavir tramadol What if I miss a dose? If you miss a dose, take it as soon as you can. If it is almost time for your next dose, take only that dose. Do not take double or extra doses. Where should I keep my medicine? Keep out of the reach of children. This medicine can be abused. Keep your medicine in a safe place to protect it from theft. Do not share this medicine with anyone. Selling or giving away this medicine is dangerous and against the law. Store at room temperature between 15 and 30 degrees C (59 and 86 degrees F). Protect from light. Keep container tightly closed. Throw away any unused medicine after the expiration date. Discard unused medicine and used packaging carefully. Pets and children can be harmed if they find used or lost packages. What should I tell my health care provider before I take this medicine? They need to know if you have any of these conditions: brain tumor Crohn's disease, inflammatory bowel disease, or ulcerative colitis drink more than 3 alcohol-containing drinks per day drug abuse or addiction head injury heart or circulation problems kidney disease or problems going to the bathroom liver disease lung disease, asthma, or breathing problems an unusual or allergic reaction to acetaminophen, hydrocodone, other opioid analgesics, other medicines, foods, dyes, or preservatives or trying to get breast-feeding What should I watch for while using this medicine? Tell your doctor or health home care nurse if your pain does not go away, if it gets worse, or if you have new or a different type of pain. You may develop tolerance to the medicine. Tolerance means that you will need a higher dose of the medicine for pain relief. Tolerance is normal and is expected if you take the medicine for a long time. Do not suddenly stop taking your medicine because you may develop a severe reaction. Your body becomes used to the medicine. This does NOT mean you are addicted. Addiction is a behavior related to getting and using a drug for a non-medical reason. If you have pain, you have a medical reason to take pain medicine. Your doctor will tell you how much medicine to take. If your doctor wants you to stop the medicine, the dose will be slowly lowered over time to avoid any side effects. You may get drowsy or dizzy when you first start taking the medicine or change doses. Do not drive, use machinery, or do anything that may be dangerous until you know how the medicine affects you. Stand or sit up slowly. There are different types of narcotic medicines (opiates) for pain. If you take more than one type at the same time, you may have more side effects. Give your health care provider a list of all medicines you use. Your doctor will tell you how much medicine to take. Do not take more medicine than directed. Call emergency for help if you have problems breathing. The medicine will cause constipation. Try to have a bowel movement at least every 2 to 3 days. If you do not have a bowel movement for 3 days, call your doctor or health home care nurse. Too much acetaminophen can be very dangerous. Do not take Tylenol (acetaminophen) or medicines that contain acetaminophen with this medicine. Many non-prescription medicines contain acetaminophen. Always read the labels carefully. You have been given the following additional information: Contusion, Soft Tissue Hydrocodone Bitartrate, Acetaminophen Oral tablet Limit use of your left hand until better. (Electronically signed by Gerardo Loya Dr. 12/19/2016 11:36)
--- NOTE | 2016-12-26 10:21 | ED MAR SUMMARY ---
..... Medication Administration Record [facility] [address] [place] [address] Patient: WILL SINGH Visit ID: [id number] 35y, F Weight: 68.0 kg Height/Length: 63 in BMI: 26.6 ALLERGIES: Sulfa Antibiotics Given 10:42 12/19/2016 Ursula Bean RYady Medication Administered: TORADOL [IM] (KETOROLAC TROMETHAMINE), Dose: 60 mg IM. Medication Ordered: Toradol IM 60 mg (NOW).
== END 2016-12-19 11:40 | disposition home or self-care (01) ==
LOC: ED SRH 09:57
DX: S60.222A Contusion of left hand, initial encounter (principal); W23.1XXA Caught, crushed, jammed, or pinched between stationary objects, initial encounter; Y93.9 Activity, unspecified; Y92.9 Unspecified place or not applicable; Y99.9 Unspecified external cause status; F17.210 Nicotine dependence, cigarettes, uncomplicated